=== PATIENT | female | born 1960 | race African-American/Black ===

== ENCOUNTER 2016-11-30 11:48 | Emergency (ER) | payer MEDICARE, MEDICAID ==
[2016-11-30] MEDS ORDERED: HYDROcodone/Acetaminophen 10/325 mg Tablet ONE ×2 (12:19→12:22)
[2016-11-30 12:51] LABS: #Basophils 0.1 thou/uL (0.0-0.2); #Eosinphils 0.1 thou/uL (0.0-0.7); #Lymphocytes 1.9 thou/uL (1.20-3.40); #Monocytes 0.3 thou/uL (0.11-0.59); #Neutrophils 3.3 thou/uL (1.40-6.50); %Basophils 1.6 % (0.0-1.0); %Eosinophils 1.3 % (0.0-10.0); %Lymphocytes 33.4 % (21.0-51.0); %Monocytes 4.5 % (0.0-10.0); Hematocrit 41.8 % (36.0-47.0); Mean Platelet Volume 7.5 fL (7.4-10.4); Red Blood Cell (RBC) Count 4.54 mill/uL (4.20-5.40); White Blood Cell (WBC) Count 5.6 thou/uL (4.8-10.8)
--- NOTE | 2016-11-30 13:03 | RAD ---
4 VIEWS OF LEFT KNEE: Date: 11/30/16 INDICATION: Left knee pain. COMPARISON: Prior study dated 05/25/15. FINDINGS: There is mild joint capsular distention. No acute fracture or subluxation is evident. Enthesopathic change is seen off the patella, which is stable. IMPRESSION: No acute osseous abnormality. No appreciable change from the comparison dated 05/25/15. POS: [facility]
--- NOTE | 2016-11-30 14:10 | ERRECORD ---
[facility] EMERGENCY RECORD HPI KNEE (12:23 ) CHIEF COMPLAINT: Patient presents for evaluation of pain, to the left knee. HISTORIAN: History provided by patient, Pt. reports one week of left medial knee pain, worse at night and when walking. Patient denies falls or trauma, but reports pain began when their car broke down and they had to hitchhike home with the dental mechanic. Patient denies prior knee problems. No F&C, N&V, new numbness/tingling/weakness or other symptoms. No other joint pain or swelling. MECHANISM OF INJURY: Unknown mechanism. LOCATION: Symptoms are localized, most severe medially, on the left, Radiation is, distally. QUALITY: Pain is sharp in nature, described as shooting. SEVERITY: Maximum severity of symptoms severe, Currently symptoms are severe. TIME COURSE: Gradual onset of symptoms, There has been no change in the patient's symptoms over time, are constant. ASSOCIATED WITH: No associated alcohol use, No associated ankle pain, No associated coolness to touch, No associated decreased range of motion, No associated decreased use, No associated distal injury, No associated distal neuro complaint, No associated erythema, No associated fever, No associated foot pain, No associated hip pain, No associated inability to ambulate, No associated inability to bear weight, No associated injury, No associated numbness, No associated open wounds, Associated with pain on walking, No associated proximal injury, Associated with swelling, No associated tingling, No associated warmth, No associated weakness distal to injury, Denies any other complaints. EXACERBATED BY: Patient's condition exacerbated by movement, Patient's condition exacerbated by walking. RELIEVED BY: Patient's condition relieved by over the counter medication, aspirin. ROS (12:25 JOHE) CONSTITUTIONAL: Historian denies chills, denies fatigue, denies fever, denies malaise. EYES: Historian denies eye pain, denies eye redness, denies vision changes. ENT: Historian denies otalgia, denies rhinorrhea, denies sore throat. CARDIOVASCULAR: Historian denies chest pain, denies syncope, denies palpitations. RESPIRATORY: Historian denies cough, denies shortness of breath, denies wheezing. GI: Historian denies abdominal pain, denies nausea, denies vomiting. MUSCULOSKELETAL: Historian denies back pain, denies deformity, denies fall, denies injury, denies joint redness, reports joint stiffness, reports joint swelling, denies myalgias, denies neck pain, denies spasms. &a-1R&a+25V*p+0X*[id number]*c202B*c15G*c2P*p-0X&a-25V&a+1R Name: Catalina Eli : 1960 F56 MedRec: [id number] AcctNum: [id number] Prepared: SatNov 30, 2016 15:48 by Interface Page [address] [facility] EMERGENCY RECORD SKIN: Historian denies cellulitis, denies rash, denies skin changes. NEUROLOGIC: Historian denies dizziness, denies focal weakness, denies headache, denies paralysis, denies paresthesias, denies seizures. HEMO/LYMPHATIC: Historian denies abnormal blood clotting, denies petechiae. PSYCHIATRIC: Historian reports anxiety, denies depression, reports drug abuse, reports marijuana abuse. denies IVDA. NOTES: All systems reviewed, negative except as described above. PAST MEDICAL HISTORY (12:00 [facility]) MEDICAL HISTORY: HTN, arthritis. FEMALE SURGICAL HISTORY: Surgical history of hysterectomy, toe surgery, mouth surgery, neck surgery, tubal ligation. PSYCHIATRIC HISTORY: Psychiatric history includes, anxiety, Notes: panic attack. SOCIAL HISTORY: Patient drinks socially, rarely, Patient currently uses drugs, abuses marijuana, Daily drug use, Patient is a former tobacco user, Patient is a former tobacco user, smoked cigarettes, Patient quit smoking in the past year, Patient drinks socially, rarely, Patient currently uses drugs, abuses marijuana,. KNOWN ALLERGIES No Known Drug Allergies CURRENT MEDICATIONS (11:58 [facility]) Ambien: TABLET : Strength - 5 mg : ORAL Patient Dose: 1 tab(s) Oral once a day (at bedtime). BuSpar: TABLET : Strength - 30 mg : ORAL Patient Dose: 1 tab(s) Oral once a day (in the morning). amLODIPine: TABLET : Strength - 10 mg : ORAL Patient Dose: 1 tab(s) Oral once a day (in the morning). ALPRAZolam: TABLET : Strength - 0.25 mg : ORAL Patient Dose: once a day. VITAL SIGNS VITAL SIGNS: BP: 138/71, Pulse: 82, Resp: 18, Temp: 97.9 (Oral), Pain: 10, O2 sat: 100 on Room Air, Time: 11/30/2016 11:53. (11:53 [facility]) BP: 129/78, Pulse: 81, Resp: 17, Temp: 97.9 (Oral), Pain: 5, O2 sat: 96 on Room Air, Time: 11/30/2016 13:22. (13:22 [facility]) [facility] &a-1R&a+25V*p+0X*[id number]*c202B*c15G*c2P*p-0X&a-25V&a+1R Name: Catalina Eli : 1960 F56 MedRec: [id number] AcctNum: [id number] Prepared: SatNov 30, 2016 15:48 by Interface Page [address] [facility] EMERGENCY RECORD CONSTITUTIONAL: Vital Signs Reviewed, Patient afebrile, Pulse normal, Blood pressure normal, Respiratory rate normal, Patient appears non toxic, Patient alert and oriented to person, place and time. HEAD: Head exam normal, Head exam included findings of head atraumatic, normocephalic. EYES: Eye exam normal, Eye exam included findings of eyelids normal to inspection, Pupils equally round and reactive to light, Extraocular muscles intact, Conjunctiva normal. ENT: ENT exam normal, Pharynx exam normal, not injected, no swelling, symmetrical, Mouth exam normal, mucous membranes moist, no drooling, no lesions, no lacerations, no tongue elevation. NECK: Neck exam normal, Neck exam included findings of normal range of motion, Trachea midline. RESPIRATORY CHEST: Respiratory and chest exam normal, Respiratory exam included findings of no respiratory distress, Breath sounds clear, No wheezing, No rales, No rhonchi, Breath sounds not absent, Breath sounds not diminished, CTAB. CARDIOVASCULAR: Cardiovascular assessment normal, Cardiovascular exam included findings of heart rate regular rate and rhythm, Heart sounds normal, Pedal pulses normal, RRR, no R/M/G. + pulses all ext., no edema. ABDOMEN FEMALE: Abdominal exam normal, Abdominal exam included findings of abdomen nontender, Bowel sounds normal. BACK: Back exam normal, Back exam included findings of normal inspection, range of motion normal. UPPER EXTREMITY: Upper extremity exam normal, Upper extremity exam included findings of inspection normal, Range of motion normal, Radial pulse normal. LOWER EXTREMITY: Lower extremity exam included findings of inspection normal, Range of motion normal, Motor strength normal, Sensation intact, Posterior tibial pulse normal, Pedal pulse normal, Maxine's negative, distal pulses intact, capillary refill less than 2 seconds, distal motor intact, distal sensory intact, Foot tendon function normal, Left knee tender to palpation at the joint line, medial > posterior > lateral. Minimal soft tssue swelling and warmth compared to the right, no significant erythema, joint effusion or heat. Knee has normal ROM compared to the opposite knee, but pt. reports pain with movement. No ligamentous laxity, negative drawer testing, equivocal Lavinia testing. REmainder BLE nontender with full and painless ROM, including the bilateral hips, ankles, and feet. Able to move all digits well, cap refill < 2 sec, sensation intact light touch BLE, normal DP/PT pulses BLE. No calf tenderness, redness, swelling, warmth or palpable cords. NEURO: Neuro exam normal, [place] coma scale 15, Neuro exam findings include patient oriented to person, place and time, Speech normal, Gait normal, Cranial nerves intact, Deep tendon reflexes normal, no focal motor deficits, no focal sensory deficits. SKIN: Skin exam normal, Skin exam included findings of skin warm, dry, and normal in color, no rash. &a-1R&a+25V*p+0X*g9517V*c202B*c15G*c2P*p-0X&a-25V&a+1R Name: Catalina Eli : 1960 F56 MedRec: [id number] AcctNum: [id number] Prepared: SatNov 30, 2016 15:48 by Interface Page [address] [facility] EMERGENCY RECORD RADIOLOGYINTERPRETATION (12:53 [facility]) LOWER EXTREMITIES: Knee films negative, on the left, no fracture, no dislocation, no foreign body, no bony lesion, no effusion, no fracture or acute changes since x-ray 05/25/2015. 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 MEDICATION ADMINISTRATION SUMMARY Drug Name: *[place], Dose Ordered: 1 mg, Route: Oral, Status: Given, Time: 12:23 11/30/2016, *Additional information available in notes, Detailed record available in Medication Service section. DOCTOR NOTES TEXT: Patient concerned about the possibility of infection in the joint. No F&C or significant redness or warmth to suggest this, but in the absence of causative injury discussed the possibility of this, and will check ESR, CBC. Discussed risks/benefits of joint aspiration with patient, who refuses at this time. As no obvious infection signs, if ESR, CRP okay, no need for joint aspiration. Otherwise will re-discuss with patient. (12:32 [facility]) Discussed results with patient who still refuses joint aspiration. As knee does not appear to have significant inflammation, and normal labs, will d/c home. Suspect likely meniscal injury. Disc. rest, ice, elevation, NSAID use, and outpatient ortho f/u. Discussed warning signs for immediate return to ED. (13:40 [facility]) PROBLEM LIST No recorded problems DIAGNOSIS (13:48 [facility]) FINAL: PRIMARY: LEFT knee pain. PRESCRIPTION (13:49 [facility]) acetaminophen-codeine: TABLET : 300 mg-30 mg : ORAL : Quantity: 1 Unit: tab(s) Route: ORAL Schedule: every 4 hours prn Dispense: 15 Unit: tab(s) May substitute. Refills: No Refills . NOTES: No Refills. DISPOSITION PATIENT: Disposition Type: Discharge, Disposition: *Discharge Home, Condition: Good. (13:48 [facility] Patient left the department. (13:54 [facility]) [place]: SERGEY=MD Toni, Matt [facility]=MARY Honeycutt, Shaista &a-1R&a+25V*p+0X*[id number]*c202B*c15G*c2P*p-0X&a-25V&a+1R Name: Catalina Eli : 1960 F56 MedRec: [id number] AcctNum: [id number] Prepared: SatNov 30, 2016 15:48 by Interface Page 4 of 4 pMD MTDD
--- NOTE | 2016-11-30 14:18 | PICIS ---
[facility] EMERGENCY RECORD TRIAGE (11:53 [facility]) PATIENT: NAME: Catalina Eli, AGE: 56, GENDER: female, : Sat1960, TIME OF GREET: SatNov 30, 2016 11:49, PREFERRED LANGUAGE: Mongolian, ETHNICITY: Not or , ECODE BILLING MAP: [facility], SSN: [id number], Zip Code: [address], PHONE: , , , PERSON ID: [id number], PCP: Ayla. (11:53 [facility]) KG WEIGHT: 74.4 (est.). (12:51 [facility]) COMPLAINT: LEFT KNEE PAIN. (11:53 [facility]) ADMISSION: URGENCY: 4 Non Urgent, ADMISSION SOURCE: Home, TRANSPORT: Walk-in, BED: ER -02. (11:53 [facility]) IMMUNIZATIONS: Flu vaccine up to date, Tetanus not up to date. (12:00 [facility]) SIRS SCORING: Heart Rate 55-109 (0), Temp range 96.8-101.1 (0), respiratory rate 12-24 (0), Mental Status altered: no (0). (12:00 [facility]) TRIAGE SCREENING: Patient denies suicidal ideation, Patient denies presence of domestic violence. (12:00 [facility]) PROVIDERS: TRIAGE NURSE: Shaista Honeycutt RN. (11:53 [facility]) PREVIOUS VISIT ALLERGIES: No Known Drug Allergies. (11:53 [facility]) No Known Drug Allergies. (12:00 [facility]) KNOWN ALLERGIES No Known Drug Allergies CURRENT MEDICATIONS (11:58 [facility]) Ambien: TABLET : Strength - 5 mg : ORAL Patient Dose: 1 tab(s) Oral once a day (at bedtime). BuSpar: TABLET : Strength - 30 mg : ORAL Patient Dose: 1 tab(s) Oral once a day (in the morning). amLODIPine: TABLET : Strength - 10 mg : ORAL Patient Dose: 1 tab(s) Oral once a day (in the morning). ALPRAZolam: TABLET : Strength - 0.25 mg : ORAL Patient Dose: once a day. VITAL SIGNS VITAL SIGNS: BP: 138/71, Pulse: 82, Resp: 18, Temp: 97.9 (Oral), Pain: 10, O2 sat: 100 on Room Air, Time: 11/30/2016 11:53. (11:53 [facility]) BP: 129/78, Pulse: 81, Resp: 17, Temp: 97.9 (Oral), Pain: 5, O2 sat: 96 on Room Air, Time: 11/30/2016 13:22. (13:22 [facility]) NURSING ASSESSMENT: EXTREMITY LOWER (11:53 [facility]) CONSTITUTIONAL: Complex assessment performed, Patient arrives ambulatory, Unsteady gait, History obtained from patient, Patient appears comfortable, Patient cooperative, Patient alert, &a-1R&a+25V*p+0X*h4417Y*c202B*c15G*c2P*p-0X&a-25V&a+1R Name: Catalina Eli : 1960 F56 MedRec: [id number] AcctNum: [id number] Prepared: SatNov 30, 2016 15:54 by Interface Page 1 of 8 pMD [facility] EMERGENCY RECORD Oriented to person, place and time, Skin warm, Skin dry, Skin normal in color, Pt reports falling 6 mos ago, but says her pain has returned as of 1 week ago. Pt has limp, but it is not new. Pt's left leg is warmer to the touch than her right leg. PAIN: burning pain, constant, on a scale 0-10 patient rates pain as 10. LEFT LOWER EXTREMITY: Left lower extremity assessment findings include capillary refill less than 2 seconds, Skin color normal, Skin temperature warm, Distal sensation intact, Muscle tone normal, muscle strength 4, no edema present, dorsalis pedis pulse is +3. RIGHT LOWER EXTREMITY: Right lower extremity assessment findings include capillary refill less than 2 seconds, Skin color normal, Skin temperature warm, Distal sensation intact, Muscle tone normal, muscle strength 5, no edema present, dorsalis pedis pulse is +3. SAFETY: Side rails up, Cart/Stretcher in lowest position, Family at bedside, Call light within reach, Hospital ID band on. NURSING PROCEDURE: DISCHARGE NOTE (13:54 [facility]) DISCHARGE: Patient discharged to home, ambulating without assistance, family driving, accompanied by //partner, Discharge instructions given to patient, Simple or moderate discharge teaching performed, by MARY Noonan, Patient treated and evaluated by physician. BELONGINGS: Belongings and valuables with patient upon arrival to the Emergency Department include:, Belongings and valuables with patient at time of discharge include:. NURSING PROCEDURE: LAB DRAW (12:32 [facility]) PATIENT IDENTIFIER: Patient actively involved in identification process, Patient's identity verified by patient stating name, Patient's identity verified by hospital ID bracelet. LAB DRAW: by venipuncture, from right antecubital, in one attempt, Lab specimens labeled in the presence of the patient and sent to lab. FOLLOW-UP: After procedure, dressing applied to site. SAFETY: Side rails up, Cart/Stretcher in lowest position, Family at bedside, Call light within reach, Hospital ID band on. ORDER DETAILS Order Name: CBC with Differential, Status: Active, Time: 12:15 11/30/2016, User: SERGEY, - Ordered for: MD Muñoz John, - Entered by: MD Muñoz John - SatNov 30, 2016 12:15, - Quantity: 1, Order Name: CRP (Inflamatory), Status: Active, Time: 12:15 11/30/2016, User: SERGEY, - Ordered for: MD Muñoz John, - Entered by: MD Muñoz John - SatNov 30, 2016 12:15, - Quantity: 1, &a-1R&a+25V*p+0X*c6336P*c202B*c15G*c2P*p-0X&a-25V&a+1R Name: Sreedhar Catalina M : 1960 F56 MedRec: [id number] AcctNum: [id number] Prepared: SatNov 30, 2016 15:54 by Interface Page 2 of 8 D [facility] EMERGENCY RECORD Order Name: RBC Sedimentation Rate (ESR), Status: Active, Time: 12:15 11/30/2016, User: SERGEY, - Ordered for: MD Muñoz John, - Entered by: MD Muñoz John - SatNov 30, 2016 12:15, - Quantity: 1, Order Name: XR Knee Lt 4 View STANDARD, Status: Active, Time: 12:16 11/30/2016, User: SERGEY, - Ordered for: MD Muñoz John, - Entered by: MD Muñoz John - SatNov 30, 2016 12:16, - Quantity: 1. MEDICATION ADMINISTRATION SUMMARY Drug Name: *[place], Dose Ordered: 1 mg, Route: Oral, Status: Given, Time: 12:23 11/30/2016, *Additional information available in notes, Detailed record available in Medication Service section. MEDICATION SERVICE (:23 ) [place]: Order: [place] (hydrocodone bitartrate/acetaminophen) - Dose: 1 mg : Oral Schedule: Now Notes: 10/325mg PO X 1 Ordered by: Matt Muñoz MD Entered by: Matt Muñoz MD SatNov 30, 2016 12:16 , Acknowledged by: Shaista Honeycutt RN SatNov 30, 2016 12:18 Documented as given by: Shaista Honeycutt RN SatNov 30, 2016 12:23 Patient, Medication, Dose, Route and Time verified prior to administration. Amount given: 10/325 mg, Site: Medication administered P.O., Correct patient, time, route, dose and medication confirmed prior to administration, Patient advised of actions and side-effects prior to administration, Allergies confirmed and medications reviewed prior to administration, Patient tolerated procedure well, Administered by MARY Noonan, Patient in position of comfort, Side rails up, Cart in lowest position, Family at bedside, Call light in reach. HPI KNEE (:) CHIEF COMPLAINT: Patient presents for evaluation of pain, to the left knee. HISTORIAN: History provided by patient, Pt. reports one week of left medial knee pain, worse at night and when walking. 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 Patient denies prior knee problems. No F&C, N&V, new numbness/tingling/weakness or other symptoms. No other joint pain or swelling. MECHANISM OF INJURY: Unknown mechanism. LOCATION: Symptoms are localized, most severe medially, on the left, Radiation is, distally. QUALITY: Pain is sharp in nature, described as shooting. SEVERITY: Maximum severity of symptoms &a-1R&a+25V*p+0X*l9065P*c202B*c15G*c2P*p-0X&a-25V&a+1R Name: Catalina Eli : 1960 F56 MedRec: [id number] AcctNum: [id number] Prepared: SatNov 30, 2016 15:54 by Interface Page 3 of 8 pMD [facility] EMERGENCY RECORD severe, Currently symptoms are severe. TIME COURSE: Gradual onset of symptoms, There has been no change in the patient's symptoms over time, are constant. ASSOCIATED WITH: No associated alcohol use, No associated ankle pain, No associated coolness to touch, No associated decreased range of motion, No associated decreased use, No associated distal injury, No associated distal neuro complaint, No associated erythema, No associated fever, No associated foot pain, No associated hip pain, No associated inability to ambulate, No associated inability to bear weight, No associated injury, No associated numbness, No associated open wounds, Associated with pain on walking, No associated proximal injury, Associated with swelling, No associated tingling, No associated warmth, No associated weakness distal to injury, Denies any other complaints. EXACERBATED BY: Patient's condition exacerbated by movement, Patient's condition exacerbated by walking. RELIEVED BY: Patient's condition relieved by over the counter medication, aspirin. ROS (12:25 [facility]) CONSTITUTIONAL: Historian denies chills, denies fatigue, denies fever, denies malaise. EYES: Historian denies eye pain, denies eye redness, denies vision changes. ENT: Historian denies otalgia, denies rhinorrhea, denies sore throat. CARDIOVASCULAR: Historian denies chest pain, denies syncope, denies palpitations. RESPIRATORY: Historian denies cough, denies shortness of breath, denies wheezing. GI: Historian denies abdominal pain, denies nausea, denies vomiting. MUSCULOSKELETAL: Historian denies back pain, denies deformity, denies fall, denies injury, denies joint redness, reports joint stiffness, reports joint swelling, denies myalgias, denies neck pain, denies spasms. SKIN: Historian denies cellulitis, denies rash, denies skin changes. NEUROLOGIC: Historian denies dizziness, denies focal weakness, denies headache, denies paralysis, denies paresthesias, denies seizures. HEMO/LYMPHATIC: Historian denies abnormal blood clotting, denies petechiae. PSYCHIATRIC: Historian reports anxiety, denies depression, reports drug abuse, reports marijuana abuse. denies IVDA. NOTES: All systems reviewed, negative except as described above. PAST MEDICAL HISTORY (12:00 [facility]) MEDICAL HISTORY: HTN, arthritis. &a-1R&a+25V*p+0X*d0703V*c202B*c15G*c2P*p-0X&a-25V&a+1R Name: Catalina Eli : 1960 F56 MedRec: [id number] AcctNum: [id number] Prepared: SatNov 30, 2016 15:54 by Interface Page 4 of 8 pMD [facility] EMERGENCY RECORD FEMALE SURGICAL HISTORY: Surgical history of hysterectomy, toe surgery, mouth surgery, neck surgery, tubal ligation. PSYCHIATRIC HISTORY: Psychiatric history includes, anxiety, Notes: panic attack. SOCIAL HISTORY: Patient drinks socially, rarely, Patient currently uses drugs, abuses marijuana, Daily drug use, Patient is a former tobacco user, Patient is a former tobacco user, smoked cigarettes, Patient quit smoking in the past year, Patient drinks socially, rarely, Patient currently uses drugs, abuses marijuana,. PHYSICAL EXAM (12:26 [facility]) CONSTITUTIONAL: Vital Signs Reviewed, Patient afebrile, Pulse normal, Blood pressure normal, Respiratory rate normal, Patient appears non toxic, Patient alert and oriented to person, place and time. HEAD: Head exam normal, Head exam included findings of head atraumatic, normocephalic. EYES: Eye exam normal, Eye exam included findings of eyelids normal to inspection, Pupils equally round and reactive to light, Extraocular muscles intact, Conjunctiva normal. ENT: ENT exam normal, Pharynx exam normal, not injected, no swelling, symmetrical, Mouth exam normal, mucous membranes moist, no drooling, no lesions, no lacerations, no tongue elevation. NECK: Neck exam normal, Neck exam included findings of normal range of motion, Trachea midline. RESPIRATORY CHEST: Respiratory and chest exam normal, Respiratory exam included findings of no respiratory distress, Breath sounds clear, No wheezing, No rales, No rhonchi, Breath sounds not absent, Breath sounds not diminished, CTAB. CARDIOVASCULAR: Cardiovascular assessment normal, Cardiovascular exam included findings of heart rate regular rate and rhythm, Heart sounds normal, Pedal pulses normal, RRR, no R/M/G. + pulses all ext., no edema. ABDOMEN FEMALE: Abdominal exam normal, Abdominal exam included findings of abdomen nontender, Bowel sounds normal. BACK: Back exam normal, Back exam included findings of normal inspection, range of motion normal. UPPER EXTREMITY: Upper extremity exam normal, Upper extremity exam included findings of inspection normal, Range of motion normal, Radial pulse normal. LOWER EXTREMITY: Lower extremity exam included findings of inspection normal, Range of motion normal, Motor strength normal, Sensation intact, Posterior tibial pulse normal, Pedal pulse normal, Maxine's negative, distal pulses intact, capillary refill less than 2 seconds, distal motor intact, distal sensory intact, Foot tendon function normal, Left knee tender to palpation at the joint line, medial > posterior > lateral. Minimal soft tssue swelling and warmth compared to the right, no significant erythema, joint effusion or heat. Knee has normal ROM compared to the opposite knee, but pt. &a-1R&a+25V*p+0X*u5234F*c202B*c15G*c2P*p-0X&a-25V&a+1R Name: Catalina Eli : 1960 F56 MedRec: [id number] AcctNum: [id number] Prepared: SatNov 30, 2016 15:54 by Interface Page 5 of 8 pMD [facility] EMERGENCY RECORD reports pain with movement. No ligamentous laxity, negative drawer testing, equivocal Lavinia testing. REmainder BLE nontender with full and painless ROM, including the bilateral hips, ankles, and feet. Able to move all digits well, cap refill < 2 sec, sensation intact light touch BLE, normal DP/PT pulses BLE. No calf tenderness, redness, swelling, warmth or palpable cords. NEURO: Neuro exam normal, Yanet coma scale 15, Neuro exam findings include patient oriented to person, place and time, Speech normal, Gait normal, Cranial nerves intact, Deep tendon reflexes normal, no focal motor deficits, no focal sensory deficits. SKIN: Skin exam normal, Skin exam included findings of skin warm, dry, and normal in color, no rash. LAB INTERPRETATION (15:45 [facility]) INTERPRETATION: I reviewed the lab results, No clinically significant lab abnormalities. EVENTS TRANSFER: Triage to Emergency Emergency Room -02. (SatNov 30, 2016 11:53 [facility]) Removed from Emergency Emergency Room -02. (13:54 [facility]) RADIOLOGYINTERPRETATION (12:53 [facility]) LOWER EXTREMITIES: Knee films negative, on the left, no fracture, no dislocation, no foreign body, no bony lesion, no effusion, no fracture or acute changes since x-ray 05/25/2015. SPECIAL EDUCATION ASSOCIATE: Preliminary review of x-rays by, ED Physician. DOCTOR NOTES TEXT: Patient concerned about the possibility of infection in the joint. No F&C or significant redness or warmth to suggest this, but in the absence of causative injury discussed the possibility of this, and will check ESR, CBC. Discussed risks/benefits of joint aspiration with patient, who refuses at this time. As no obvious infection signs, if ESR, CRP okay, no need for joint aspiration. Otherwise will re-discuss with patient. (12:32 [facility]) Discussed results with patient who still refuses joint aspiration. As knee does not appear to have significant inflammation, and normal labs, will d/c home. Suspect likely meniscal injury. Disc. rest, ice, elevation, NSAID use, and outpatient ortho f/u. Discussed warning signs for immediate return to ED. (13:40 [facility]) PROBLEM LIST No recorded problems DIAGNOSIS (13:48 [facility]) FINAL: PRIMARY: LEFT knee pain. DISPOSITION &a-1R&a+25V*p+0X*h7440V*c202B*c15G*c2P*p-0X&a-25V&a+1R Name: Catalina Eli : 1960 F56 MedRec: [id number] AcctNum: [id number] Prepared: SatNov 30, 2016 15:54 by Interface Page 6 of 8 pMD [facility] EMERGENCY RECORD PATIENT: Disposition Type: Discharge, Disposition: *Discharge Home, Condition: Good. (13:48 [facility]) Patient left the department. (13:54 [facility]) INSTRUCTION (13:49 [facility]) DISCHARGE: KNEE PAIN, MENISCUS INJURY (POSSIBLE). FOLLOWUP: MD Manuel, Brennen, Orthopedics, [address], [address], [place] [address], , Follow up with Specialist in 5 days. PRESCRIPTION (13:49 [facility]) acetaminophen-codeine: TABLET : 300 mg-30 mg : ORAL : Quantity: 1 Unit: tab(s) Route: ORAL Schedule: every 4 hours prn Dispense: 15 Unit: tab(s) May substitute. Refills: No Refills . NOTES: No Refills. IMAGING *DISCHARGE INSTRUCTIONS RECEIPT: Image captured from scanner. (13:55 [facility]) *SUPPLY CHARGE SHEET: Image captured from scanner. (13:56 [facility]) ADMIN (15:47 [facility]) DIGITAL SIGNATURE: MD Muñoz John. RESULTS LABORATORY: CRP (Inflammatory) Collection DT: SatNov 30, 2016 12:33, *CRP (Inflammatory) 0.52 - H mg/dL, Range (= or < 0.5). (12:54 [facility]) CBC with Differential Collection DT: SatNov 30, 2016 12:33, White Blood Cell (WBC) Count 5.6 thou/uL, Range (4.8-10.8), Red Blood Cell (RBC) Count 4.54 mill/uL, Range (4.20-5.40), Hemoglobin 13.7 g/dL, Range (12.0-16.0), Hematocrit 41.8 %, Range (36.0-47.0), Mean Corpuscular Volume 92.2 fl, Range (81.0-99.0), Mean Corpuscular Hemoglobin 30.3 pg, Range (27.0-31.0), Mean Corpuscular HGB CONC 32.8 g/dL, Range (32.0-36.0), RBC Distribution Width 14.1 %, Range (11.5-14.5), Platelet Count 273 thou/uL, Range (130-400), Mean Platelet Volume 7.5 fL, Range (7.4-10.4), %Neutrophils 59.3 %, Range (42.0-75.0), %Lymphocytes 33.4 %, Range (21.0-51.0), %Monocytes 4.5 %, Range (0.0-10.0), %Eosinophils 1.3 %, Range (0.0-10.0), *%Basophils 1.6 - H %, Range (0.0-1.0), #Neutrophils 3.3 thou/uL, Range (1.40-6.50), #Lymphocytes 1.9 thou/uL, Range (1.20-3.40), #Monocytes 0.3 thou/uL, Range (0.11-0.59), #Eosinphils 0.1 thou/uL, Range (0.0-0.7), &a-1R&a+25V*p+0X*i7276X*c202B*c15G*c2P*p-0X&a-25V&a+1R Name: Catalina Eli : 1960 F56 MedRec: [id number] AcctNum: [id number] Prepared: SatNov 30, 2016 15:54 by Interface Page 7 of 8 D [facility] EMERGENCY RECORD #Basophils 0.1 thou/uL, Range (0.0-0.2). (12:54 [facility]) CBC with Differential Collection DT: SatNov 30, 2016 12:33, White Blood Cell (WBC) Count 5.6 thou/uL, Range (4.8-10.8), Red Blood Cell (RBC) Count 4.54 mill/uL, Range (4.20-5.40), Hemoglobin 13.7 g/dL, Range (12.0-16.0), Hematocrit 41.8 %, Range (36.0-47.0), Mean Corpuscular Volume 92.2 fl, Range (81.0-99.0), Mean Corpuscular Hemoglobin 30.3 pg, Range (27.0-31.0), Mean Corpuscular HGB CONC 32.8 g/dL, Range (32.0-36.0), RBC Distribution Width 14.1 %, Range (11.5-14.5), Platelet Count 273 thou/uL, Range (130-400), Mean Platelet Volume 7.5 fL, Range (7.4-10.4), %Neutrophils 59.3 %, Range (42.0-75.0), %Lymphocytes 33.4 %, Range (21.0-51.0), %Monocytes 4.5 %, Range (0.0-10.0), %Eosinophils 1.3 %, Range (0.0-10.0), *%Basophils 1.6 - H %, Range (0.0-1.0), #Neutrophils 3.3 thou/uL, Range (1.40-6.50), #Lymphocytes 1.9 thou/uL, Range (1.20-3.40), #Monocytes 0.3 thou/uL, Range (0.11-0.59), #Eosinphils 0.1 thou/uL, Range (0.0-0.7), #Basophils 0.1 thou/uL, Range (0.0-0.2). (13:06 [facility]) RBC Sedimentation Rate (ESR) Collection DT: SatNov 30, 2016 12:33, RBC Sedimentation Rate (ESR) 19 mm/hr, Range (0-20). (13:41 [facility]) [place]: SERGEY=MD Toni, Matt [facility]=MARY Honeycutt, Shaista &a-1R&a+25V*p+0X*o6781F*c202B*c15G*c2P*p-0X&a-25V&a+1R Name: Catalina Eli : 1960 F56 MedRec: [id number] AcctNum: [id number] Prepared: SatNov 30, 2016 15:54 by Interface Page 8 of 8 pMD [facility]TDD
== END 2016-11-30 13:53 | disposition home or self-care (01) ==
LOC: NAV ERS 11:48
DX: M25.562 Pain in left knee (principal); I10 Essential (primary) hypertension; Z87.891 Personal history of nicotine dependence
CPT/HCPCS: 36415; 85025; 85652; 86140; 99283

== ENCOUNTER 2017-05-19 16:29 | Emergency (ER) | payer MEDICARE, MEDICAID ==
[2017-05-19] MEDS ORDERED: Lidocaine 1% 20 ML MDV ONE (16:48)
[2017-05-19] MEDS ORDERED: cefTRIAXone\\ROCEPHIN 1 GM VIAL ONE (16:48)
== END 2017-05-19 17:13 | disposition home or self-care (01) ==
LOC: NAV ERS 16:29
DX: J20.9 Acute bronchitis, unspecified (principal); I10 Essential (primary) hypertension; M19.90 Unspecified osteoarthritis, unspecified site; F41.0 Panic disorder [episodic paroxysmal anxiety]; Z87.891 Personal history of nicotine dependence; Z79.899 Other long term (current) drug therapy
CPT/HCPCS: 96372; J0696; J2001

== ENCOUNTER 2017-05-28 19:53 | Emergency (ER) | payer MEDICARE, MEDICAID ==
[2017-05-28] MEDS ORDERED: Cyclobenzaprine 10 MG TAB ONE (20:25)
[2017-05-28] MEDS ORDERED: Ibuprofen 200 MG TAB ONE (20:25)
--- NOTE | 2017-05-28 20:40 | RAD ---
TWO VIEWS OF THE CHEST: 05/28/17 COMPARISON: 09/24/14 HISTORY: Pain, cough. FINDINGS: Cervical spine hardware present, grossly unchanged. No pneumothorax, pleural fluid, focal consolidat ion, or alveolar edema. IMPRESSION: No acute findings. POS: [facility]
== END 2017-05-28 20:58 | disposition home or self-care (01) ==
LOC: NAV ERS 19:53
DX: S16.1XXA Strain of muscle, fascia and tendon at neck level, initial encounter (principal); I10 Essential (primary) hypertension; F31.9 Bipolar disorder, unspecified; F41.0 Panic disorder [episodic paroxysmal anxiety]; Z87.891 Personal history of nicotine dependence; Z79.899 Other long term (current) drug therapy; X50.0XXA Overexertion from strenuous movement or load, initial encounter
CPT/HCPCS: 71020

== ENCOUNTER 2017-09-24 14:07 | Emergency (ER) | payer MEDICARE, MEDICAID ==
[2017-09-24] MEDS ORDERED: Ketorolac Tromethamine 60 MG/2 ML VIAL ONE (14:53)
== END 2017-09-24 15:44 | disposition home or self-care (01) ==
LOC: NAV ERS 14:07
DX: K02.9 Dental caries, unspecified (principal); K04.7 Periapical abscess without sinus; I10 Essential (primary) hypertension; M19.90 Unspecified osteoarthritis, unspecified site; F31.9 Bipolar disorder, unspecified; F17.210 Nicotine dependence, cigarettes, uncomplicated; Z79.899 Other long term (current) drug therapy
CPT/HCPCS: 96372; J1885

== ENCOUNTER 2017-10-04 10:58 | Emergency (ER) | payer MEDICARE, MEDICAID ==
[2017-10-04] MEDS ORDERED: Acetaminophen/Codeine 30-300mg Tablet ONE (11:38)
[2017-10-04] MEDS ORDERED: Sulfameth/Trimethoprim DS 800-160mg TAB ONE (11:38)
== END 2017-10-04 11:43 | disposition home or self-care (01) ==
LOC: NAV ERS 10:58
DX: L05.01 Pilonidal cyst with abscess (principal); I10 Essential (primary) hypertension; F31.9 Bipolar disorder, unspecified; F41.0 Panic disorder [episodic paroxysmal anxiety]; Z87.891 Personal history of nicotine dependence; Z79.891 Long term (current) use of opiate analgesic; Z79.899 Other long term (current) drug therapy
CPT/HCPCS: 99283

== ENCOUNTER 2018-02-13 14:13 | Emergency (ER) | payer MEDICARE, MEDICAID ==
[2018-02-13] MEDS ORDERED: Ibuprofen 800 MG TAB ONE (15:02)
== END 2018-02-13 15:07 | disposition home or self-care (01) ==
LOC: NAV ERS 14:13
DX: K02.9 Dental caries, unspecified (principal); I10 Essential (primary) hypertension; M19.90 Unspecified osteoarthritis, unspecified site; F31.9 Bipolar disorder, unspecified; F41.9 Anxiety disorder, unspecified; Z79.899 Other long term (current) drug therapy
CPT/HCPCS: 99282

== ENCOUNTER 2018-04-07 10:31 | Emergency (ER) | payer MEDICARE, MEDICAID ==
[2018-04-07] MEDS ORDERED: Sodium Chloride 0.9% 1,000 ML ONE (11:10)
[2018-04-07] MEDS ORDERED: Ketorolac Tromethamine 30 MG/ML VIAL ONE (11:10)
[2018-04-07 11:43] LABS: Bilirubin Small (Negative); Blood, Urine Negative (Negative); Clarity Clear (Clear); Glucose, Urine (Dipstick) Negative (Negative); Leukocyte Negative (Negative); Nitrite Negative (Negative); Protein, Urine (Dipstick) Negative (Neg-Trace); Urobilinogen 0.2 mg/dL (0.2-1.0); pH, Urine 5.5 (5.0-9.0)
[2018-04-07 11:50] LABS: ALT (SGPT) 13 U/L (8-55); AST (SGOT) 22 U/L (5-34); Alkaline Phosphatase 95 U/L (40-150); Anion Gap 15 mmol/L (10-20); BUN (Urea Nitrogen) 11 mg/dL (9.8-20.1); Bilirubin, Total 0.5 mg/dL (0.2-1.2); Calc. Creatinine Clearance 0 mL/min (70-130); Carbon Dioxide 23 mmol/L (22-29); Chloride 109 mmol/L (98-107); Estimated GFR-MDRD Greater than 90; Globulin 3.6 g/dL (2.4-3.5); Glucose 120 mg/dL (70-105); Protein, Total 7.6 g/dL (6.0-8.3); Sodium 143 mmol/L (136-145)
[2018-04-07 11:53] LABS: Hemoglobin 13.2 g/dL (12.0-16.0); Lymphocytes 29 % (21-51); MDiff Complete? YES; Mean Corpuscular HGB CONC 32.1 g/dL (32.0-36.0); Mean Corpuscular Hemoglobin 28.9 pg (27.0-31.0); Mean Corpuscular Volume 90.1 fl (81.0-99.0); Mean Platelet Volume 8.5 fL (7.4-10.4); Monocytes 4 % (0-10); Neutrophil 67 % (42-75); PLT Morphology Comment Appears Adequate; Platelet Count 220 thou/uL (130-400); RBC Distribution Width 13.5 % (11.5-14.5); Red Blood Cell (RBC) Count 4.56 mill/uL (4.20-5.40); White Blood Cell (WBC) Count 5.1 thou/uL (4.8-10.8)
[2018-04-07 11:57] LABS: THC/Cannabinoid Screen Detected (NotDetected)
[2018-04-07 11:58] LABS: Amphetamine Not Detected (NotDetected); Barbiturates Screen Not Detected (NotDetected); Benzodiazepine Screen Detected (NotDetected); Cocaine Metabolite Screen Not Detected (NotDetected); Medtox Control Line Valid? VALID (VALID); Methadone Not Detected (NotDetected); Methamphetamine Not Detected (NotDetected); Opiate Screen Detected (NotDetected); Oxycodone Screen Not Detected (NotDetected); Phencyclidine (PCP) Not Detected (NotDetected); Tricyclic Screen Not Detected (NotDetected)
--- NOTE | 2018-04-07 12:22 | CT ---
CT ABDOMEN AND PELVIS WITHOUT CONTRAST STONE PROTOCOL: HISTORY: Abdominal pain. COMPARISON: None. FINDINGS: Mild atelectasis of the lung bases. No pericardial effusion. Small sliding hiatal hernia. There is a tubular hypodensity along the left adnexa. No inflammatory changes within the pelvis. Mild diverticular disease of the sigmoid colon without active current inflammation. The appendix is visualized and is normal. No nephroureteral lithiasis or hydroureteronephrosis. No secondary evidence of a recently passed stone. There is cholelithiasis. No evidence of acute cholec ystitis. Aortoiliac contour is nonaneurysmal. Moderate acetabular osteophytes. Mild dextroscoliosis. IMPRESSION: 1. No nephroureteral lithiasis or hydroureteral nephrosis. No secondary evidence for a recently pas sed stone. 2. Normal appendix. 3. Mild cholelithiasis without cholecystitis. 4. Mild to moderate-sized sliding hiatal hernia. POS: [facility]
== END 2018-04-07 12:52 | disposition home or self-care (01) ==
LOC: NAV ERS 10:31
DX: R10.30 Lower abdominal pain, unspecified (principal); I10 Essential (primary) hypertension; F31.9 Bipolar disorder, unspecified; Z87.891 Personal history of nicotine dependence; Z79.899 Other long term (current) drug therapy
CPT/HCPCS: 74176; 80053; 80306; 81003; 85025; 96361; 96374; J1885; J7050

== ENCOUNTER 2018-06-06 18:40 | Emergency (ER) | payer MEDICARE, MEDICAID ==
[2018-06-06] MEDS ORDERED: Ondansetron HCl/PF 4 MG/2 ML Vial ONE (19:15)
[2018-06-06] MEDS ORDERED: Lidocaine Viscous Sol 2% 15 ml UD Cup ONE (19:15)
[2018-06-06] MEDS ORDERED: Mag-Al Plus 1200 MG/1200 MG/120 MG/30 ML UDCUP ONE (19:15)
[2018-06-06 19:36] LABS: #Basophils 0.1 thou/uL (0.0-0.2); #Lymphocytes 2.5 thou/uL (1.20-3.40); #Monocytes 0.5 thou/uL (0.11-0.59); #Neutrophils 5.1 thou/uL (1.40-6.50); %Eosinophils 0.2 % (0.0-10.0); %Lymphocytes 30.3 % (21.0-51.0); %Monocytes 6.3 % (0.0-10.0); %Neutrophils 62.2 % (42.0-75.0); Hemoglobin 13.8 g/dL (12.0-16.0); Mean Corpuscular HGB CONC 32.8 g/dL (32.0-36.0); Mean Corpuscular Hemoglobin 28.6 pg (27.0-31.0); Mean Corpuscular Volume 87.1 fL (78.0-98.0); Mean Platelet Volume 8.6 fL (7.4-10.4); Platelet Count 292 thou/uL (130-400); RBC Distribution Width 12.8 % (11.5-14.5); Red Blood Cell (RBC) Count 4.84 mill/uL (4.20-5.40); White Blood Cell (WBC) Count 8.2 thou/uL (4.8-10.8)
[2018-06-06 19:51] LABS: ALT (SGPT) 13 U/L (8-55); AST (SGOT) 17 U/L (5-34); Albumin 4.6 g/dL (3.5-5.0); Alkaline Phosphatase 103 U/L (40-150); Anion Gap 19 mmol/L (10-20); BUN (Urea Nitrogen) 12 mg/dL (9.8-20.1); Bilirubin, Total 0.6 mg/dL (0.2-1.2); Calc. Creatinine Clearance 0 mL/min (70-130); Calcium 10.1 mg/dL (7.8-10.44); Carbon Dioxide 18 mmol/L (22-29); Chloride 108 mmol/L (98-107); Estimated GFR-MDRD 55; Globulin 4.1 g/dL (2.4-3.5); Glucose 113 mg/dL (70-105); Lipase 29 U/L (8-78); Potassium 3.1 mmol/L (3.5-5.1); Protein, Total 8.7 g/dL (6.0-8.3); Sodium 142 mmol/L (136-145)
[2018-06-06 19:53] LABS: CKMB 0.3 ng/mL (0-6.6); Troponin I Less than 0.010 ng/mL (< 0.028)
[2018-06-06] MEDS ORDERED: Potassium Chloride 20 MEQ TAB ONE (20:16)
== END 2018-06-06 20:34 | disposition home or self-care (01) ==
LOC: NAV ERS 18:40
DX: K52.9 Noninfective gastroenteritis and colitis, unspecified (principal); I10 Essential (primary) hypertension; F31.9 Bipolar disorder, unspecified; F41.9 Anxiety disorder, unspecified; Z87.891 Personal history of nicotine dependence; Z79.899 Other long term (current) drug therapy
CPT/HCPCS: 80053; 82553; 83690; 84484; 85025; 93005; 96374; J2405

== ENCOUNTER 2019-01-20 10:42 | Outpatient (CLI) | payer MEDICARE, MEDICAID ==
--- NOTE | 2019-01-20 13:08 | ULT ---
SONOGRAM ABDOMEN COMPLETE: History: Upper abdomen pain. FINDINGS: Multiple shadowing stones are within the dependent portion of the gallbladder lumen. No gallbladder w all thickening or pericholecystic fluid. Common duct is 0.7 cm, upper limits of normal. Gallbladder i s not overly distended. Liver is unremarkable without focal mass or intrahepatic biliary dilatation. No free fluid. The splee n, kidneys, and visualized portions of the abdominal aorta, IVC, and pancreas have a normal appearanc e. IMPRESSION: Cholelithiasis. No evidence of acute biliary obstruction. POS: [facility]
[2019-01-20 17:32] LABS: ALT (SGPT) 13 U/L (8-55); AST (SGOT) 18 U/L (5-34); Albumin 4.3 g/dL (3.5-5.0); Alkaline Phosphatase 103 U/L (40-150); Anion Gap 10 mmol/L (10-20); BUN (Urea Nitrogen) 11 mg/dL (9.8-20.1); Bilirubin, Direct 0.3 mg/dL (0.1-0.3); Bilirubin, Total 0.7 mg/dL (0.2-1.2); Calc. Creatinine Clearance 0 mL/min (70-130); Calcium 9.7 mg/dL (7.8-10.44); Carbon Dioxide 30 mmol/L (22-29); Chloride 106 mmol/L (98-107); Estimated GFR-MDRD Greater than 90; Glucose 99 mg/dL (70-105); Protein, Total 7.9 g/dL (6.0-8.3); Sodium 142 mmol/L (136-145)
[2019-01-20 18:00] LABS: Hemoglobin 13.5 g/dL (12.0-16.0); Lymphocytes 16 % (21-51); MDiff Complete? YES; Mean Corpuscular HGB CONC 33.6 g/dL (32.0-36.0); Mean Corpuscular Hemoglobin 31.5 pg (27.0-31.0); Mean Corpuscular Volume 93.8 fL (78.0-98.0); Mean Platelet Volume 9.9 fL (7.4-10.4); Monocytes 7 % (0-10); Neutrophil 77 % (42-75); Platelet Count 259 thou/uL (130-400); Platelet Morphology Comment Appears Adequate; RBC Distribution Width 13.8 % (11.5-14.5)
== END 2019-01-20 10:43 | disposition home or self-care (01) ==
LOC: NAV ULT 10:42
PROVIDERS: ATTEND Nurse Practitioner Adult Health
DX: R10.11 Right upper quadrant pain (principal); K80.20 Calculus of gallbladder without cholecystitis without obstruction
CPT/HCPCS: 76700; 80048; 80076; 85025

== ENCOUNTER 2019-11-23 16:26 | Emergency (ER) | payer MEDICAID, MEDICARE ==
[2019-11-23] MEDS ORDERED: Ketorolac Tromethamine 60 MG/2 ML VIAL ONE (17:03)
== END 2019-11-23 17:22 | disposition home or self-care (01) ==
LOC: NAV ERS 16:26
DX: M54.2 Cervicalgia (principal); I10 Essential (primary) hypertension; M19.90 Unspecified osteoarthritis, unspecified site; F31.9 Bipolar disorder, unspecified; F41.0 Panic disorder [episodic paroxysmal anxiety]; Z87.891 Personal history of nicotine dependence; Z79.899 Other long term (current) drug therapy
CPT/HCPCS: 96372; 99283; J1885

== ENCOUNTER 2019-11-24 11:22 | Emergency (ER) | payer MEDICARE ==
[2019-11-24] MEDS ORDERED: Dexamethasone 20 MG/5 ML VIAL ONE (12:02)
[2019-11-24] MEDS ORDERED: Ketorolac Tromethamine 60 MG/2 ML VIAL ONE (12:02)
[2019-11-24] MEDS ORDERED: HYDROcodone/Acetaminophen 5/325 mg Tablet ONE (12:02)
--- NOTE | 2019-11-24 12:32 | RAD ---
XR Cerv Sp Ap Lat STANDARD History: Pain Comparison: None. Findings: Remote ACDF at C5-C7 without evidence for hardware complication. 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 Advanced C3/C4 and C4/C5 degenerative disc space height loss. 3 mm C4/C5 retrolisthesis, degenerative in nature. No acute fracture. The visualized upper ribs are intact. Open-mouth odontoid view is normal. Impression: 1. Intact surgical hardware without complication. 2. Advanced degenerative disc disease from C3-C5.
== END 2019-11-24 12:40 | disposition home or self-care (01) ==
LOC: NAV ERS 11:22
DX: M62.838 Other muscle spasm (principal); I10 Essential (primary) hypertension; F31.9 Bipolar disorder, unspecified; M19.90 Unspecified osteoarthritis, unspecified site; F41.0 Panic disorder [episodic paroxysmal anxiety]; Z87.891 Personal history of nicotine dependence; Z79.899 Other long term (current) drug therapy
CPT/HCPCS: 72040; 96372; J1100; J1885

== ENCOUNTER 2021-12-08 07:23 | Emergency (ER) | payer MEDICARE, MEDICAID ==
[2021-12-08] MEDS ORDERED: Aspirin Chewable 81 MG TAB ONE (08:13)
[2021-12-08 08:32] LABS: #Basophils 0.1 thou/uL (0.0-0.2); #Lymphocytes 1.7 thou/uL (1.20-3.40); #Monocytes 0.2 thou/uL (0.11-0.59); #Neutrophils 2.8 thou/uL (1.40-6.50); %Basophils 1.3 % (0.0-1.0); %Eosinophils 0.3 % (0.0-10.0); %Lymphocytes 35.4 % (21.0-51.0); Hemoglobin 14.5 g/dL (12.0-16.0); Mean Corpuscular HGB CONC 33.9 g/dL (32.0-36.0); Mean Corpuscular Hemoglobin 31.7 pg (27.0-31.0); Mean Corpuscular Volume 93.4 fL (78.0-98.0); Mean Platelet Volume 8.9 fL (7.4-10.4); Platelet Count 231 thou/uL (130-400); RBC Distribution Width 13.4 % (11.5-14.5); Red Blood Cell (RBC) Count 4.57 mill/uL (4.20-5.40); White Blood Cell (WBC) Count 4.8 thou/uL (4.8-10.8)
[2021-12-08] MEDS ORDERED: Ketorolac Tromethamine 30 MG/ML VIAL ONE (08:33)
[2021-12-08] MEDS ORDERED: Nitroglycerin 2% Ointment 1 INCH/1 GM Packet ONE (08:33)
[2021-12-08 08:36] LABS: ALT (SGPT) 11 U/L (8-55); AST (SGOT) 16 U/L (5-34); Albumin 4.3 g/dL (3.4-4.8); Alkaline Phosphatase 92 U/L (40-110); Anion Gap 12 mmol/L (10-20); BUN (Urea Nitrogen) 14 mg/dL (9.8-20.1); Bilirubin, Total 0.6 mg/dL (0.2-1.2); Calc. Creatinine Clearance 0 mL/min (70-130); Calcium 9.3 mg/dL (7.8-10.44); Carbon Dioxide 26 mmol/L (23-31); Chloride 106 mmol/L (98-107); Globulin 3.9 g/dL (2.4-3.5); Glucose 108 mg/dL (80-115); Potassium 3.3 mmol/L (3.5-5.1); Protein, Total 8.2 g/dL (5.8-8.1); Sodium 141 mmol/L (136-145)
[2021-12-08 08:47] LABS: CK (CPK) 48 U/L (29-168); Lipase 34 U/L (8-78)
[2021-12-08 09:06] LABS: Bilirubin Negative (Negative); Blood, Urine Trace (Negative); Clarity Clear (Clear); Glucose, Urine (Dipstick) Negative (Negative); Ketone, Urine Negative (Negative); Leukocyte Negative (Negative); Nitrite Negative (Negative); Protein, Urine (Dipstick) Negative (Neg-Trace); Specific Gravity, Urine 1.025 (1.005-1.030); Urobilinogen 0.2 mg/dL (Less than 2); pH, Urine 5.5 (5.0-9.0)
[2021-12-08 09:18] LABS: Bacteria/HPF None Seen HPF (None Seen); RBC/HPF 0-3 HPF (0-3); Squamous Epithelial 0-3 HPF (0-3); WBC/HPF 0-3 HPF (0-3)
[2021-12-08 11:27] LABS: Troponin I Less than 0.010 ng/mL (< 0.028)
== END 2021-12-08 11:40 | disposition home or self-care (01) ==
LOC: NAV ERS 07:23
DX: R07.9 Chest pain, unspecified (principal); F17.210 Nicotine dependence, cigarettes, uncomplicated; I10 Essential (primary) hypertension; M19.90 Unspecified osteoarthritis, unspecified site; Z79.899 Other long term (current) drug therapy
CPT/HCPCS: 71045; 80053; 81003; 81015; 82550; 83690; 84484; 85025; 85379; 93005; 96374; J1885

== ENCOUNTER 2021-12-12 08:22 | Emergency (ER) | payer MEDICARE, MEDICAID | END 2021-12-12 11:58 | disposition home or self-care (01) | LOC: NAV ERS 08:22 | DX: S82.441A Displaced spiral fracture of shaft of right fibula, initial encounter for closed fracture (principal); S82.844A Nondisplaced bimalleolar fracture of right lower leg, initial encounter for closed fracture; I10 Essential (primary) hypertension; F17.290 Nicotine dependence, other tobacco product, uncomplicated; W18.30XA Fall on same level, unspecified, initial encounter; M19.90 Unspecified osteoarthritis, unspecified site | CPT/HCPCS: 29515 ==

== ENCOUNTER 2022-04-08 03:36 | Emergency (ER) | payer MEDICARE, MEDICAID ==
[2022-04-08] MEDS ORDERED: Ondansetron ODT 4 MG TAB ONE (05:16)
[2022-04-08 05:31] LABS: #Basophils 0.1 thou/uL (0.0-0.2); #Lymphocytes 1.8 thou/uL (1.20-3.40); #Monocytes 0.3 thou/uL (0.11-0.59); #Neutrophils 5.6 thou/uL (1.40-6.50); %Eosinophils 0.5 % (0.0-10.0); %Lymphocytes 23.1 % (21.0-51.0); %Monocytes 4.2 % (0.0-10.0); %Neutrophils 71.3 % (42.0-75.0); Hemoglobin 14.1 g/dL (12.0-16.0); Mean Corpuscular HGB CONC 31.4 g/dL (32.0-36.0); Mean Corpuscular Hemoglobin 30.2 pg (27.0-31.0); Mean Corpuscular Volume 96.3 fL (78.0-98.0); Mean Platelet Volume 8.7 fL (7.4-10.4); Platelet Count 255 thou/uL (130-400); RBC Distribution Width 13.2 % (11.5-14.5); Red Blood Cell (RBC) Count 4.68 mill/uL (4.20-5.40); White Blood Cell (WBC) Count 7.9 thou/uL (4.8-10.8)
[2022-04-08 05:46] LABS: ALT (SGPT) 13 U/L (8-55); AST (SGOT) 18 U/L (5-34); Albumin 4.5 g/dL (3.4-4.8); Alkaline Phosphatase 98 U/L (40-110); Anion Gap 17 mmol/L (10-20); BUN (Urea Nitrogen) 14 mg/dL (9.8-20.1); Bilirubin, Total 0.6 mg/dL (0.2-1.2); Calc. Creatinine Clearance 0 mL/min (70-130); Calcium 9.8 mg/dL (7.8-10.44); Carbon Dioxide 25 mmol/L (23-31); Chloride 105 mmol/L (98-107); Glucose 105 mg/dL (80-115); Lipase 38 U/L (8-78); Potassium 3.9 mmol/L (3.5-5.1); Protein, Total 8.5 g/dL (5.8-8.1); Sodium 143 mmol/L (136-145)
[2022-04-08 06:11] LABS: Bilirubin Negative (Negative); Clarity Clear (Clear); Glucose, Urine (Dipstick) Negative (Negative); Ketone, Urine Negative (Negative); Leukocyte Negative (Negative); Nitrite Negative (Negative); Protein, Urine (Dipstick) Negative (Neg-Trace); Specific Gravity, Urine 1.025 (1.005-1.030); Urobilinogen 0.2 mg/dL (Less than 2); pH, Urine 5.5 (5.0-9.0)
[2022-04-08 06:12] LABS: Blood, Urine Trace (Negative)
[2022-04-08 06:15] LABS: Bacteria/HPF None Seen HPF (None Seen); RBC/HPF 0-3 HPF (0-3); Squamous Epithelial None Seen HPF (0-3); WBC/HPF None Seen HPF (0-3)
== END 2022-04-08 06:41 | disposition home or self-care (01) ==
LOC: NAV ERS 03:36
DX: R11.2 Nausea with vomiting, unspecified (principal); R10.84 Generalized abdominal pain; I49.8 Other specified cardiac arrhythmias; I10 Essential (primary) hypertension; M19.90 Unspecified osteoarthritis, unspecified site; F17.210 Nicotine dependence, cigarettes, uncomplicated; Z79.899 Other long term (current) drug therapy
CPT/HCPCS: 36415; 80053; 81003; 81015; 83690; 84484; 85025; 93005; Q0162

== ENCOUNTER 2023-04-29 15:05 | Emergency (ER) | payer MEDICARE, OTHER ==
[2023-04-29] MEDS ORDERED: Ibuprofen 800 MG TAB ONE (15:20)
[2023-04-29] MEDS ORDERED: diphenhydrAMINE 25 MG CAP ONE (15:20)
== END 2023-04-29 15:23 | disposition home or self-care (01) ==
LOC: NAV ERS 15:05
DX: T63.461A Toxic effect of venom of wasps, accidental (unintentional), initial encounter (principal); I10 Essential (primary) hypertension; F17.290 Nicotine dependence, other tobacco product, uncomplicated; Z79.899 Other long term (current) drug therapy
CPT/HCPCS: 99282

== ENCOUNTER 2023-06-27 08:33 | Emergency (ER) | payer OTHER | END 2023-06-27 09:41 | disposition home or self-care (01) | LOC: NAV ERS 08:33 | DX: M67.823 Other specified disorders of tendon, right elbow (principal); I10 Essential (primary) hypertension; F17.290 Nicotine dependence, other tobacco product, uncomplicated ==

== ENCOUNTER 2023-07-11 10:28 | Emergency (ER) | payer OTHER | END 2023-07-11 11:15 | disposition home or self-care (01) | LOC: NAV ERS 10:28 | DX: B02.9 Zoster without complications (principal); I10 Essential (primary) hypertension; M19.90 Unspecified osteoarthritis, unspecified site; F17.210 Nicotine dependence, cigarettes, uncomplicated; Z79.899 Other long term (current) drug therapy | CPT/HCPCS: 99282 ==

== ENCOUNTER 2025-09-11 13:48 | Emergency (ER) | payer MEDICARE, OTHER | END 2025-09-11 15:10 | disposition home or self-care (01) | LOC: NAV ERS 13:48 | DX: M25.571 Pain in right ankle and joints of right foot (principal); I10 Essential (primary) hypertension; F17.290 Nicotine dependence, other tobacco product, uncomplicated; Z79.899 Other long term (current) drug therapy | CPT/HCPCS: 99283 ==